=== PATIENT | male | born 1970 | race Caucasian/White ===

== ENCOUNTER 2020-03-21 07:04 | Outpatient (CLI) | payer BC, SELFPAY ==
[2020-03-24 22:34] LABS: Patient Race White; SARS-CoV-2 RNA Undetected (Undetected); SARS-CoV-2 Specimen Source Nasal
== END 2020-03-21 07:24 ==
PROVIDERS: Visit Provider Naturopath
DX: J06.9 Acute upper respiratory infection, unspecified (principal)
CPT/HCPCS: U0003